=== PATIENT | female | born 1980 | race Caucasian/White ===

== ENCOUNTER → 2018-10-20 | Outpatient (CLI) | payer BC ==
--- NOTE | 2018-10-20 15:45 | Diagnostic Imaging Report ---
PROCEDURE: US Thyroid. TECHNIQUE: Multiple real-time grayscale images were obtained of the thyroid in various projections. INDICATION: Hyperthyroidism. COMPARISON: No prior studies are available for comparison. FINDINGS: Right lobe of the thyroid measures 4.7 x 2.1 x 1.6 cm and the left lobe measures 4.5 x 1.6 x 1.3 cm. The isthmus is 2 mm in thickness. Both lobes are somewhat heterogeneous in appearance but no discrete thyroid mass is detected. IMPRESSION: Heterogeneous thyroid. No discrete mass is identified. Dictated by: Dictated on workstation # [id number]
== END ==
LOC: RAD 12:47
PROVIDERS: ATTEND Family Medicine
DX: E05.90 Thyrotoxicosis, unspecified without thyrotoxic crisis or storm (principal)
CPT/HCPCS: 76536

== ENCOUNTER → 2019-02-16 | Outpatient (CLI) | payer BC | LOC: RAD 09:21 | PROVIDERS: ATTEND Family Medicine | DX: Z12.31 Encounter for screening mammogram for malignant neoplasm of breast (principal) | CPT/HCPCS: 77067 ==

== ENCOUNTER → 2019-03-24 | Outpatient (CLI) | payer BC ==
--- NOTE | 2019-03-25 12:29 | Diagnostic Imaging Report ---
EXAMINATION: Nuclear Medicine I-123 thyroid scan. INDICATION: Hyperthyroidism. TECHNIQUE: This study was performed following administration of 210 uCi of I-123. AP and both oblique views of the thyroid gland were obtained. COMPARISON: There are no prior Nuclear Medicine studies available for comparison. The thyroid ultrasound exam performed on 10/20/2018 noted that the thyroid gland was not enlarged. There was no focal mass involving either lobe but the gland did have a heterogeneous texture. FINDINGS: On this study, the 24 hour uptake is 52.1% (normal 10-30%). The thyroid gland does seem prominent. There is no focal area of increased or decreased activity to suggest a definite discrete lesion. There is slightly increased activity within the midportion of the right lobe but this is not convincing for a mass. IMPRESSION: 1. The 24-hour thyroid uptake value is elevated. The possibility of Graves' disease should certainly be considered. Correlation with the patient's thyroid laboratory values would be recommended. 2. The thyroid gland is prominent but there is no discrete area of increased or decreased activity to suggest a nodule. Dictated by: Dictated on workstation # [id number]
== END ==
LOC: CARD 10:23
PROVIDERS: ATTEND Internal Medicine Endocrinology, Diabetes & Metabolism
DX: E05.90 Thyrotoxicosis, unspecified without thyrotoxic crisis or storm (principal)
CPT/HCPCS: 78014

== ENCOUNTER → 2020-02-22 | Outpatient (CLI) | payer BC ==
--- NOTE | 2020-02-22 11:10 | Diagnostic Imaging Report ---
INDICATION: Routine screening. COMPARISON: 02/16/2019 and 01/04/2014. TECHNIQUE: 2D and 3D bilateral screening mammography was performed with CAD. FINDINGS: Both breasts are heterogeneously dense, limiting the sensitivity of mammography. No mass or malignant appearing microcalcifications are seen. The axillae are unremarkable. IMPRESSION: No mammographic features suspicious for malignancy are identified. ACR BI-RADS Category 1: Negative. Result letter will be mailed to the patient. Note: At least 10% of breast cancer is not imaged by mammography. Dictated by: Dictated on workstation # [id number]
== END ==
LOC: RAD 09:00
PROVIDERS: ATTEND Family Medicine
DX: Z12.31 Encounter for screening mammogram for malignant neoplasm of breast (principal)
CPT/HCPCS: 77063; 77067

== ENCOUNTER 2021-01-16 13:01 | Emergency (ER) | payer BC ==
[~2021-01-16] VITALS: Ht 160 cm; Wt 95.0 kg
[2021-01-16] MEDS ORDERED: fentaNYL INJ 100 MCG/2 ML AMP IVP ONE (14:00)
[2021-01-16] MEDS ORDERED: ETOMIDATE IV SOLN 20 MG/10 ML VIAL IV ONE (14:00)
[2021-01-16] MEDS ORDERED: ONDANSETRON 4 MG/2 ML (SDV) Z0FRAN IVP ONE (14:00)
--- NOTE | 2021-01-16 14:15 | Diagnostic Imaging Report ---
INDICATION: Fall with right wrist pain. AP, oblique, and lateral views of the right wrist are obtained at 1:44 p.m. FINDINGS: There is a comminuted distal radial intra-articular fracture with dorsal displacement and angulation of the distal fragments. Remaining bony structures are intact. IMPRESSION: Comminuted distal radial intra-articular fracture with dorsal angulation and dorsal displacement of the distal fragments. Dictated by: Dictated on workstation # [id number]
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
--- NOTE | 2021-01-16 14:48 | Diagnostic Imaging Report ---
INDICATION: Status post wrist fracture reduction. COMPARISON: Earlier same day. FINDINGS: Multiple radiographic views of the right wrist were obtained. Evaluation is partially obscured by overlying radiopaque cast material. Acute transverse oriented fracture of the distal radius is again identified. There has been interval improved alignment status post reduction. There is, however, some residual posterior subluxation and angulation of the distal fracture fragment. Radiocarpal joint space is maintained. No unexpected radiopaque foreign bodies are seen. IMPRESSION: 1. Overall improved alignment of previously described distal radial fracture. Dictated by: Dictated on workstation # [id number]
[2021-01-16] MEDS ORDERED: ACHD5005 PO (14:55)
[2021-01-16] MEDS ORDERED: IBUPROFEN 800 MG (MOTRIN) TAB PO ONE (15:00)
--- OUTSIDE RECORDS SUMMARY | 2021-01-16 15:41 | XMS REPORT | CCD ---
Author Author Leticia Luna D.O. Organization [facility] Address [address] [place] [address] Phone Care Team Providers Care Substation Operator Chief Name Role Phone PP Unavailable CCM Unavailable Summary Purpose Interface Exchange Insurance Providers Payer name Policy type / Coverage type Covered constitution party ID Effective Begin Date Effective End Date Blue Cross Blue Shield Blue Cross/Blue Shield [id number] 2019 Unknown Family history Mother Diagnosis Age At Onset Hypertension Unknown Father Diagnosis Age At Onset Hypertension Unknown Social History Social History Element Codes Description Effective Dates Marital status Unknown Single 09/30/2018 Employment Unknown Currently employed [employer] 09/30/[address]: 85651665 Current some days sm oker few when out with friends 09/30/[address]: 187698 Currently drinks alc ohol social 09/30/2018 Has the patient ever used illegal drugs? Unknown Has nev er used illegal drugs 09/30/2018 Allergies, Adverse Reactions, Alerts Substance Reaction Codes Entered Date Inactivated Date Status * NO KNOWN FOOD ALLERGIES Unknown 09/30/2018 No Inactiv e Date Active * NO KNOWN DRUG ALLERGIES Unknown 09/30/2018 No Inactiv e Date Active * NO KNOWN ENVIRONMENTAL ALLERGIES Unknown 09/30/2018 N o Inactive Date Active Problems Condition Codes Effective Dates Condition Status Hypertension Unknown 01/02/2021 Active Essential hypertension ICD-10: I10 ICD-9: 401.9 01/02/2021 Active Generalized anxiety disorder ICD-10: F41.1 ICD-9: 300.02 09/30/2018 Active Hypercholesterolemia ICD-10: E78.00 ICD-9: 272.0 01/02/2021 Active Tachycardia, unspecified ICD-10: R00.0 ICD-9: 785.0 09/30/2018 Active Thyrotoxicosis, unspecified without thyrotoxic crisis or storm ICD-10: E05.90 ICD-9: 242.90 09/30/2018 Active Encounter for screening mammogram for malignant neopla sm of breast ICD-10: Z12.31 ICD-9: V76.12 01/26/2019 Active Insomnia ICD-10: G47.00 ICD-9: 780.52 12/28/2019 Active Elevated blood-pressure reading, without diagnosis of hypertension ICD-10: R03.0 ICD-9: 796.2 09/30/2018 Active Encounter for general adult medical examination withou t abnormal findings ICD- 10: Z00.00 ICD-9: V70.9 09/30/2018 Active Palpitations ICD-10: R00.2 ICD-9: 785.1 09/30/2018 Active Medications Medication Codes Instructions Start Date Stop Date Status Fill Instructions fluoxetine 10 mg capsule RxNorm: 951907 Take 1 Capsule( s) Oral QD take with 40mg dose 01/02/2021 04/01/2021 Active flax seed oil RxNorm: Take 1 Capsule(s) Oral QD 01/02/2021 Inactive melatonin 5 mg capsule RxNorm: 388466 Take 1 Capsule(s) Oral every night at bedtime 01/02/2021 No Stop Date Active fluoxetine 40 mg capsule RxNorm: 215883 Take 1 Capsule(s) Oral QD 0 12/15/2020 03/14/2021 Active fluoxetine 40 mg capsule RxNorm: 997215 TAKE 1 CAPSULE BY MOUTH ONCE DAILY REPLACES ESCITALOPRAM 09/13/2020 09/13/2020 Inactive metoprolol succinate ER 50 mg tablet,extended release 24 hr RxNorm: 795846 1 Tablet(s) Oral QD 08/10/2020 02/05/2021 Active metoprolol succinate ER 50 mg tablet,extended release 24 hr RxNorm: 732829 1 Tablet(s) Oral QD 08/10/2020 08/09/2020 Inactive fluoxetine 40 mg capsule RxNorm: 409086 TAKE 1 CAPSULE BY MOUTH ONCE DAILY REPLACES ESCITALOPRAM 06/22/2020 09/12/2020 Inactive fluoxetine 40 mg capsule RxNorm: 954553 1 Capsule(s) Or al QD replaces escitalopram 03/02/2020 05/31/2020 Inactive fluoxetine 40 mg capsule RxNorm: 914898 1 Capsule(s) Or al QD replaces escitalopram 10/26/2019 01/23/2020 Inactive fluoxetine 40 mg capsule RxNorm: 006738 1 Capsule(s) Or al QD replaces escitalopram 10/26/2019 03/02/2020 Inactive metoprolol succinate ER 25 mg tablet,extended release 24 hr RxNorm: 818991 1 Tablet(s) Oral QD 09/28/2019 08/09/2020 Inactive fluoxetine 40 mg capsule RxNorm: 320168 1 Capsule(s) Or al QD replaces escitalopram 09/28/2019 10/25/2019 Inactive methimazole 5 mg tablet RxNorm: 865770 / Tablet(s) Oral QD 201906/26/2020 Inactive methimazole 10 mg tablet RxNorm: 883454 1 Tablet(s) Oral QD 020 09/27/2019 Inactive escitalopram 20 mg tablet RxNorm: 741414 1 Tablet(s) Oral QD re places 10mg dose 06/22/2019 09/27/2019 Inactive Sprintec (28) 0.25 mg-35 mcg tablet RxNorm: 684489 1 Tablet(s) Oral QD 06/22/2019 12/27/2019 Inactive metoprolol succinate ER 50 mg tablet,extended release 24 hr RxNorm: 403055 TAKE 1 TABLET BY MOUTH ONCE DAILY 05/07/2019 09/27/2019 Inactive metoprolol succinate ER 50 mg tablet,extended release 24 hr RxNorm: 394388 1 Tablet(s) Oral QD 02/23/2019 02/22/2019 Inactive metoprolol succinate ER 50 mg tablet,extended release 24 hr RxNorm: 274976 1 Tablet(s) Oral QD 02/23/2019 05/06/2019 Inactive escitalopram 10 mg tablet RxNorm: 508570 1 Tablet(s) PO QD 01/27/2006/21/2019 Inactive propranolol 40 mg tablet RxNorm: 883310 1 Tablet(s) PO QHS repl aces 20mg dose 01/26/2019 02/22/2019 Inactive propranolol 20 mg tablet RxNorm: 776509 1 Tablet(s) PO QHS for BP/pulse 10/29/2018 01/25/2019 Inactive escitalopram 5 mg tablet RxNorm: 266390 1 Tablet(s) PO QD 10/29/2018 06/21/2019 Inactive propranolol 20 mg tablet RxNorm: 402870 1 Tablet(s) PO QHS for BP/pulse 10/28/2018 10/28/2018 Inactive escitalopram 5 mg tablet RxNorm: 002188 1 Tablet(s) PO QD 10/01/2018 10/28/2018 Inactive escitalopram 5 mg tablet RxNorm: 690307 1 Tablet(s) PO QD 10/01/2018 09/30/2018 Inactive propranolol 20 mg tablet RxNorm: 410973 1 Tablet(s) PO QHS for BP/pulse 09/30/2018 10/27/2018 Inactive Multivitamin And Mineral tablet RxNorm: 1 Tablet(s) PO QD 09/30/2018 Active Vitamin B12 1000mcg Tablet RxNorm: 1 Tablet(s) PO QD 09/30/2018 Active docusate sodium 100 mg tablet RxNorm: 1059298 1-2 Tablet(s) PO QD Active Fish Oil 1,000 mg capsule RxNorm: 1 Capsule(s) PO QD 09/30/2018 Active Medication Administered No Medication Administered data Immunizations Vaccine Codes Date Status Covid-19 CVX: 08/12/2020 Covid-19 CVX: 207 07/15/2020 Influenza CVX: 141 01/22/2019 Tetanus, Diptheria, Pertussis CVX: 115 01/22/2019 Results Observation Observation Code Item Item Code Result Date S ervice Location THYROID STIMULATING HORMONE 65980 TSH <0.008 uIU/m L 01/05/2019 Unknown FREE T4 75053 T4 Free 1.04 ng/dL 01/05/2019 Unknown THYROID ANTIBODY GROUP 36459|45930 Thyro Perx Ab 361.28 Unit s 10/02/2018 Unknown THYROID ANTIBODY GROUP 44967|46899 Thyro Autoab 0.22 Units 0 10/02/2018 Unknown THYRO PERX 6579966 Thyro Perx Ab TNP:Unknown Cancel Reason 10/01/2018 Unknown LIPID GROUP 80650 Cholesterol 217 mg/dL 09/30/2018 Unkno wn LIPID GROUP 67059 Triglyceride 54 mg/dL 09/30/2018 Unkn own LIPID GROUP 98626 HDL CHOLESTEROL 61 mg/dL 09/30/2018 U nknown LIPID GROUP 88028 Chol/HDL Ratio 3.56 ratio 09/30/2018 U nknown LIPID GROUP 56194 NON-HDL Chol 156 mg/dL 09/30/2018 Unkn own LIPID GROUP 52521 LDL Cholesterol 145 mg/dL 09/30/2018 U nknown THYROID STIMULATING HORMONE 28221 TSH <0.008 uIU/m L 09/30/2018 Unknown COMPREHENSIVE METABOLIC 83448 AST 14 U/L 2018 Unknown COMPREHENSIVE METABOLIC 36116 ALT 13 U/L 2018 Unknown COMPREHENSIVE METABOLIC 95354 BUN 11 mg/dL 2018 Unknown COMPREHENSIVE METABOLIC 32192 ALBUMIN 4.5 g/dL 2018 Unknown COMPREHENSIVE METABOLIC 58182 CHLORIDE 107 mmol/L 09/30 Unknown COMPREHENSIVE METABOLIC 17594 Bili Total 0.4 mg/dL 09/30 Unknown COMPREHENSIVE METABOLIC 37818 ALK PHOS 59 U/L 2018 Unknown COMPREHENSIVE METABOLIC 37982 SODIUM 138 mmol/L 09/30 Unknown COMPREHENSIVE METABOLIC 52344 CREATININE 0.65 mg/dL 09/17 Unknown COMPREHENSIVE METABOLIC 08947 CALCIUM 9.5 mg/dL 2018 Unknown COMPREHENSIVE METABOLIC 12337 POTASSIUM 4.2 mmol/L 09/30 Unknown COMPREHENSIVE METABOLIC 23891 Total Protein 7.5 g/dL Unknown COMPREHENSIVE METABOLIC 18638 Glucose 104 mg/dL 2018 Unknown COMPREHENSIVE METABOLIC 26955 Bicarbonate 20 mmol/L 09/17 Unknown COMPREHENSIVE METABOLIC 74779 AGAP 11 mmol/L 2018 Unknown FREE T4 46966 T4 Free 1.25 ng/dL 09/30/2018 Unknown COMPLETE BLOOD COUNT 4720535 WBC 6.5 10e9/L 10/01/19 19 Unknown COMPLETE BLOOD COUNT 8675911 RBC 4.88 10e12/L 2018 Unknown COMPLETE BLOOD COUNT 0741338 HEMOGLOBIN 14.6 g/dL 10/01/19 19 Unknown COMPLETE BLOOD COUNT 9471373 HEMATOCRIT 43.8 % 10/01/19 19 Unknown COMPLETE BLOOD COUNT 8145968 MCV 89.8 fL 9 Unknown COMPLETE BLOOD COUNT 8270543 MCH 29.9 pg 9 Unknown COMPLETE BLOOD COUNT 4467741 MCHC 33.3 g/dL 9 Unknown COMPLETE BLOOD COUNT 6484109 PLATELET COUNT 275 10e9/L Unknown COMPLETE BLOOD COUNT 5685173 Mean Plt Volume 11.7 fL Unknown COMPLETE BLOOD COUNT 9861252 Neut Auto 76.1 % 9 Unknown COMPLETE BLOOD COUNT 8784387 Lymph Auto 17.9 % 10/01/19 19 Unknown COMPLETE BLOOD COUNT 3230677 [place] Auto 5.2 % 9 Unknown COMPLETE BLOOD COUNT 5397688 RDW 12.3 % 9 Unknown COMPLETE BLOOD COUNT 4546786 Eos Auto 0.6 % 9 Unknown COMPLETE BLOOD COUNT 6542845 Baso Auto 0.2 % 9 Unknown COMPLETE BLOOD COUNT 1669935 Neutrophil Abs 4.95 10e9/L Unknown COMPLETE BLOOD COUNT 3641235 Lymphocyte Abs 1.16 10e9/L Unknown COMPLETE BLOOD COUNT 7945349 Monocyte Abs 0.34 10e9/L 09/17 Unknown COMPLETE BLOOD COUNT 0346762 Eosinophil Abs 0.04 10e9/L Unknown COMPLETE BLOOD COUNT 1978482 RDW-SD 39.9 fL 9 Unknown COMPLETE BLOOD COUNT 5566715 Basophil Abs 0.01 10e9/L 09/17 Unknown GFR CALC 9869474 GFR Non Afr Amr >60 mL/min 09/30/2018 Un known GFR CALC [id number] GFR Afr Amr >60 mL/min 09/30/2018 Unknow n ASSAY TRIIODOTHYRONINE (T3) 81187 T3 Total 1.42 ng/mL 0 09/30/2018 Unknown Procedures Procedure Codes Date ROUTINE VENIPUNCTURE CPT-4: 05259 02/23/2019 ASSAY OF FREE THYROXINE CPT-4: 23340 02/23/2019 ASSAY THYROID STIM HORMONE CPT-4: 72617 02/23/2019 ROUTINE VENIPUNCTURE CPT-4: 51421 01/05/2019 ASSAY THYROID STIM HORMONE CPT-4: 67585 01/05/2019 ASSAY OF FREE THYROXINE CPT-4: 80425 01/05/2019 ROUTINE VENIPUNCTURE CPT-4: 86225 09/30/2018 ASSAY OF FREE THYROXINE CPT-4: 53105 09/30/2018 ASSAY THYROID STIM HORMONE CPT-4: 04325 09/30/2018 COMPREHEN METABOLIC PANEL CPT-4: 62747 09/30/2018 COMPLETE CBC W/AUTO DIFF WBC CPT-4: 33513 09/30/2018 ASSAY TRIIODOTHYRONINE (T3) CPT-4: 14778 09/30/2018 LIPID PANEL CPT-4: 79909 09/30/2018 THYROID ANTIBODY GROUP CPT-4: 63436|07274 09/30/2018 THYRO PERX CPT-4: 6292967 09/30/2018 Vital Signs Date Vital 01/02/2021 Blood Pressure 1: 120/72 Code: 8480-6 Heart Rate 1: 76 bpm Respiratory Rate: 18 bpm SpO2: 99% Temperature: 36.6 (C) / 97.9 (F) We ight: 208 lbs Code: 75828-2 06/27/2020 Blood Pressure 1: 116/78 Code: 8480-6 Heart Rate 1: 92 bpm Respiratory Rate: 20 bpm SpO2: 98% Temperature: 37.2 (C) / 99.0 (F) We ight: 207 lbs Code: 67317-9 12/28/2019 Blood Pressure 1: 114/72 Code: 8480-6 Heart Rate 1: 80 bpm Respiratory Rate: 20 bpm SpO2: 97% Temperature: 36.2 (C) / 97.1 (F) We ight: 207 lbs Code: 70954-9 09/28/2019 Blood Pressure 1: 124/80 Code: 8480-6 BMI: 35.8 Code: 19901-0 Heart Rate 1: 88 bpm Height: 5'4" Code: 8302-2 Respiratory Rate: 20 bpm SpO2: 98% Temperature: 37.2 (C) / 99.0 (F) Weight: 207 lbs Code: 94806-6 06/22/2019 Blood Pressure 1: 122/78 Code: 8480-6 Heart Rate 1: 72 bpm Respiratory Rate: 20 bpm SpO2: 98% Temperature: 37.3 (C) / 99.2 (F) We ight: 199 lbs Code: 70068-9 03/23/2019 Blood Pressure 1: 130/84 Code: 8480-6 He art Rate 1: 76 bpm 02/23/2019 Blood Pressure 1: 126/92 Code: 8480-6 He art Rate 1: 92 bpm 01/26/2019 Blood Pressure 1: 138/90 Code: 8480-6 Heart Rate 1: 86 bpm SpO2: 99% Temperature: 36.6 (C) / 97.9 (F) Weight: 189 lbs Code: 59860-6 10/27/2018 Blood Pressure 1: 128/70 Code: 8480-6 Heart Rate 1: 88 bpm Respiratory Rate: 20 bpm SpO2: 98% Temperature: 37.3 (C) / 99.2 (F) We ight: 172 lbs Code: 16781-5 09/30/2018 Blood Pressure 1: 136/86 Code: 8480-6 BMI: 29.6 Code: 51619-9 Heart Rate 1: 126 bpm Height: 5'4" Code: 8302-2 Respiratory Rate: 20 bpm SpO2: 98% Temperature: 37.9 (C) / 100.2 (F) Weight: 171 lbs Code: 56117-5 Functional Status No Functional Status data Reason For Visit Reason For Visit Effective Dates Notes follow up 01/02/2021 follow up 06/27/2020 follow up 12/28/2019 follow up 09/28/2019 follow up 06/22/2019 blood pressure check 03/23/2019 blood pressure check 02/23/2019 anxiety 01/26/2019 lab draw 01/05/2019 follow up 10/27/2018 ~generic 09/30/2018 New Patient---kvngl nimo visit Encounters Encounter Performer Location Codes Date ([id number]) OFFICE/OUTPATIENT VISIT EST Diagnosis: Generalized anxiety disorder[ICD10: F41.1] Diagnosis: Essential hypertension[ICD10: I10] Diagnosis: Hypercholesterolemia[ICD10: E78.00] Agustin MORENO [employer] CPT-4: 00683 01/02/2021 ([id number]) OFFICE/OUTPATIENT VISIT EST Diagnosis: Generalized anxiety disorder[ICD10: F41.1] Diagnosis: Tachycardia, unspecified[ICD10: R00.0] Diagnosis: Thyrotoxicosis, unspecified without thyrotoxic crisis or storm[ICD10: E05.90] Agustin Luna AGUSTIN [facility]rette [facility] CPT-4: 17633 06/27/2020 ([id number]) OFFICE/OUTPATIENT VISIT EST Diagnosis: Generalized anxiety disorder[ICD10: F41.1] Diagnosis: Insomnia[ICD10: G47.00] Agustin VELEZ MarquitaJoe PapriikaJORDY SALAS [facility] CPT-4: 50292 12/28/2019 ([id number]) OFFICE/OUTPATIENT VISIT EST Diagnosis: Generalized anxiety disorder[ICD10: F41.1] Diagnosis: Thyrotoxicosis, unspecified without thyrotoxic crisis or storm[ICD10: E05.90] [facility] CPT-4: 03323 09/28/2019 ([id number]) OFFICE/OUTPATIENT VISIT EST Diagnosis: Generalized anxiety disorder[ICD10: F41.1] Diagnosis: Thyrotoxicosis, unspecified without thyrotoxic crisis or storm[ICD10: E05.90] Diagnosis: Elevated blood-pressure reading, without diagnosis of hypertension[ICD10: R03.0] [facility] CPT- 4: 13889 06/22/2019 ([id number]) NURSE/OUTPATIENT VISIT EST Diagnosis: Thyrotoxicosis, unspecified without thyrotoxic crisis or storm[ICD10: E05.90] Diagnosis: Elevated blood-pressure reading, without diagnosis of hypertension[ICD10: R03.0] [facility] CPT- 4: 48958 02/23/2019 ([id number]) OFFICE/OUTPATIENT VISIT EST Diagnosis: Generalized anxiety disorder[ICD10: F41.1] Diagnosis: Elevated blood-pressure reading, without diagnosis of hypertension[ICD10: R03.0] Diagnosis: Thyrotoxicosis, unspecified without thyrotoxic crisis or storm[ICD10: E05.90] Agustin LUNA [employer] [facility] CPT-4: 98679 01/26/2019 ([id number]) NURSE/OUTPATIENT VISIT EST Diagnosis: Thyrotoxicosis, unspecified without thyrotoxic crisis or storm[ICD10: E05.90] [facility] CPT-4: 90014 01/05/2019 ([id number]) OFFICE/OUTPATIENT VISIT EST Diagnosis: Generalized anxiety disorder[ICD10: F41.1] Diagnosis: Tachycardia, unspecified[ICD10: R00.0] Diagnosis: Thyrotoxicosis, unspecified without thyrotoxic crisis or storm[ICD10: E05.90] [facility] CPT-4: 54228 10/27/2018 OFFICE/OUTPATIENT VISIT NEW Diagnosis: Tachycardia, unspecified[ICD10: R00.0] Diagnosis: Palpitations[ICD10: R00.2] Diagnosis: Generalized anxiety disorder[ICD10: F41.1] Diagnosis: Elevated blood-pressure reading, without diagnosis of hypertension[ICD10: R03.0] Diagnosis: Encounter for general adult medical examination without abnormal findings[ICD10: Z00.00] Diagnosis: Thyrotoxicosis, unspecified without thyrotoxic crisis or storm[ICD10: E05.90] Agustin LUNA [facility] CPT-4: 10018 09/30/2018 Plan of Care Planned Activity Notes Codes Status Date Visit Diagnosis Plan: Essential hypertension Discussio n: stable ICD-9 : 401.9 ICD-10 : I10 01/02/2021 Visit Diagnosis Plan: Generalized anxiety disorder Dis cussion: Increase fluoxetine to 50mg daily Stress Reducers--discussed yoga Call in 1month on how doing ICD-9 : 300.02 ICD-10 : F41.1 01/02/2021 Visit Diagnosis Plan: Hypercholesterolemia Discussion: Cholestoff pro and lifestyle change and repeat lipids in 3mos with thyroid lab ICD-9 : 272.0 ICD-10 : E78.00 01/02/2021 Patient Education: [employer] Card Patient Savings Mess age Completed 01/02/2021 Visit Diagnosis Plan: Tachycardia, unspecified Discuss ion: Discussed increasing metoprolol to 50mg daily ICD-9 : 785.0 ICD-10 : R00.0 06/27/2020 Visit Diagnosis Plan: Thyrotoxicosis, un specified without thyrotoxic crisis or storm Discussion: Has fwup lab in next 1-2 wilfredo coughlin ICD-9 : 242.90 ICD-10 : E05.90 06/27/2020 Visit Diagnosis Plan: Generalized anxiety disorder Dis cussion: Stable on fluoxetine ICD-9 : 300.02 ICD-10 : F41.1 06/27/2020 [facility] [phone] [id number] [facility] 06/27/2020 Care Plan: MAMMOGRAM SCREENING LOINC : 2 6347-5 Pending 01/26/2020 Visit Diagnosis Plan: Insomnia Discussion: Trial of ma gnesium 200mg to 400mg po q PM first and then can add melatonin 5-10mg p q PM if needed ICD-9 : 780.52 ICD-10 : G47.00 12/28/2019 Visit Diagnosis Plan: Generalized anxiety disorder Dis cussion: Improved with fluoxetine Recheck 6mos ICD-9 : 300.02 ICD-10 : F41.1 12/28/2019 Appointment: Agustin Luna WPtel: [address] [place], [place] [phone] US FOLLOW UP 12/28/2019 Visit Diagnosis Plan: Generalized anxiety disorder Dis cussion: Change escitalopram to Fluoxetine 40mg daily Call in 4 weeks ICD-9 : 300.02 ICD-10 : F41.1 09/28/2019 Visit Diagnosis Plan: Thyrotoxicosis, un specified without thyrotoxic crisis or storm Discussion: Due for repeat bloodwork Oct with Endo so will check full fasting lab at that time Discussion: Due for repeat bloodwork October 18 ICD-9 : 242.90 ICD-10 : E05.90 09/28/2019 Appointment: Agustin Luna WPtel: [address] [place], [place] [phone] US FOLLOW UP 09/28/2019 Patient Education: fluoxetine- [employer] Coupon [id number] [email or web address]-dm Completed 09/28/2019 Appointment: Agustin Luna WPtel: [address] [place], [place] [phone] US RESCHEDULED 09/21/2019 Visit Diagnosis Plan: Generalized anxiety disorder Dis cussion: Increase escitalopram to 20mg daily Call in 1month on how doing Follow Up: 3 months ICD-9 : 300.02 ICD-10 : F41.1 06/22/2019 Visit Diagnosis Plan: Elevated blood-pre ssure reading, without diagnosis of hypertension Discussion: Stable on metoprolole ICD-9 : 796.2 ICD-10 : R03.0 06/22/2019 Visit Diagnosis Plan: Thyrotoxicosis, un specified without thyrotoxic crisis or storm Discussion: On methimazole and fowolling with Dr. Hernandez Follow Up: As needed ICD-9 : 242.90 ICD-10 : E05.90 06/22/2019 Appointment: Agustin Luna WPtel: [address] [place] [address] US FOLLOW UP 06/22/2019 Patient Education: escitalopram oxalate- [employer] Co upon [id number] [email or web address]/getResource/[email or web address] Completed 06/22/2019 Appointment: Agustin Luna WPtel: [address] [place] [address] US BP CHECK 03/23/2019 Appointment: Agustin Luna WPtel: [address] [place] [address] US LAB 02/23/2019 Visit Diagnosis Plan: Generalized anxiety disorder Dis cussion: Increase lexapro to 10mg daily Stress Reducers Follow Up: 3 months ICD-9 : 300.02 ICD-10 : F41.1 01/26/2019 Visit Diagnosis Plan: Thyrotoxicosis, un specified without thyrotoxic crisis or storm Discussion: Sees endocrinology next joaquín h--will come by for TSH, Free T4 and TT3 before that visit ICD-9 : 242.90 ICD-10 : E05.90 01/26/2019 Visit Diagnosis Plan: Elevated blood-pre ssure reading, without diagnosis of hypertension Discussion: Increase propranolol to 40mg po q HS ICD-9 : 796.2 ICD-10 : R03.0 01/26/2019 Appointment: Agustin Luna WPtel: [address] [place], [place] [phone] US FOLLOW UP 01/26/2019 Patient Education: propranolol- [employer] Coupon [phone] https://[email or web address]/resources/getResource/61/[email or web address] Completed 01/26/2019 Patient Education: escitalopram oxalate- [employer] Co upon [id number] [email or web address]/resources/getResource/61/[email or web address] Completed 01/26/2019 Appointment: Agustin Luna WPtel: [address] [place], [place] [phone] US LAB 01/05/2019 Visit Diagnosis Plan: Generalized anxiety disorder Dis cussion: Improved with low dose lexapro Follow Up: 3 months ICD-9 : 300.02 ICD-10 : F41.1 10/27/2018 Visit Diagnosis Plan: Tachycardia, unspecified Discuss ion: Improved with propranolol ICD-9 : 785.0 ICD-10 : R00.0 10/27/2018 Visit Diagnosis Plan: Thyrotoxicosis, un specified without thyrotoxic crisis or storm Discussion: Referral to Endo--suppressed TSH with elevated thyroid peroxidase and symptoms of hyperthryoidism ICD-9 : 242.90 ICD-10 : E05.90 10/27/2018 Appointment: Agustin Luna WPtel: [address] [place], [place] [phone] US FOLLOW UP 10/27/2018 Care Plan: Referral Order SNOMED-CT : 30 [id number] Pending 10/27/2018 Care Plan: US EXAM OF HEAD AND NECK thyroid US LOIN C : 33087-0 Pending 10/01/2018 Visit Diagnosis Plan: Tachycardia, unspecified Discuss ion: Low dose propranolol at bedtime for pulse/BP/anxiety ICD-9 : 785.0 ICD-10 : R00.0 09/30/2018 Visit Diagnosis Plan: Generalized anxiety disorder Dis cussion: Stress reducers Will likely add low dose SSRI pending lab results ICD-9 : 300.02 ICD-10 : F41.1 09/30/2018 Visit Diagnosis Plan: Palpitations Discussion: Check l ab to ascertain not another cause--CBC, CMP, TSH, Free T4 ICD-9 : 785.1 ICD-10 : R00.2 09/30/2018 Appointment: Agustin Luna WPtel: [address] [place], [place] [phone] US SIGN RECORDS RELEASE NEW PATIENT 09/30/2018 Patient Education: propranolol- [employer] Adria [phone] [email or web address]/getResource/[email or web address] Completed 09/30/2018 Referral: Fatoumata Hernandez WPtel: [address] [id number] Referral Appointment Requested Instructions No Instructions Medical Equipment No Medical Equipment data Health Concerns Section Health Concerns data not found Goals Section Goals data not found Interventions Section Interventions data not found Health Status Evaluations/Outcomes Section Health Status Evaluations/Outcomes data not found Advance Directives No Advance Directive data
--- OUTSIDE RECORDS SUMMARY | 2021-01-16 15:41 | XMS REPORT | CCD ---
Author Author Leticia Luna D.O. 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 Name Role Phone PP Unavailable CCM Unavailable Summary Purpose Interface Exchange Insurance Providers Payer name Policy type / Coverage type Covered libertarian ID Effective Begin Date Effective End Date Blue Cross Blue Shield Blue Cross/Blue Shield [id number] 2019 Unknown Family history Mother Diagnosis Age At Onset Hypertension Unknown Father Diagnosis Age At Onset Hypertension Unknown Social History Social History Element Codes Description Effective Dates Marital status Unknown Single 09/30/2018 Employment Unknown Currently employed [employer] 09/30/[address]: 07381123 Current some days sm oker few when out with friends 09/30/[address]: 792171 Currently drinks alc ohol social 09/30/2018 Has [...] Fill Instructions fluoxetine 10 mg capsule RxNorm: 260758 Take 1 Capsule( s) Oral QD take with 40mg dose 01/02/2021 04/01/2021 Active flax seed oil RxNorm: Take 1 Capsule(s) Oral QD 01/02/2021 Inactive melatonin 5 mg capsule RxNorm: 081612 Take 1 Capsule(s) Oral every night at bedtime 01/02/2021 No Stop Date Active fluoxetine 40 mg capsule RxNorm: 636552 Take 1 Capsule(s) Oral QD 0 12/15/2020 03/14/2021 Active fluoxetine 40 mg capsule RxNorm: 978449 TAKE 1 CAPSULE BY MOUTH ONCE DAILY REPLACES ESCITALOPRAM 09/13/2020 09/13/2020 Inactive metoprolol succinate ER 50 mg tablet,extended release 24 hr RxNorm: 092305 1 Tablet(s) Oral QD 08/10/2020 02/05/2021 Active metoprolol succinate ER 50 mg tablet,extended release 24 hr RxNorm: 720265 1 Tablet(s) Oral QD 08/10/2020 08/09/2020 Inactive fluoxetine 40 mg capsule RxNorm: 267268 TAKE 1 CAPSULE BY MOUTH ONCE DAILY REPLACES ESCITALOPRAM 06/22/2020 09/12/2020 Inactive fluoxetine 40 mg capsule RxNorm: 628048 1 Capsule(s) Or al QD replaces escitalopram 03/02/2020 05/31/2020 Inactive fluoxetine 40 mg capsule RxNorm: 676456 1 Capsule(s) Or al QD replaces escitalopram 10/26/2019 01/23/2020 Inactive fluoxetine 40 mg capsule RxNorm: 691914 1 Capsule(s) Or al QD replaces escitalopram 10/26/2019 03/02/2020 Inactive metoprolol succinate ER 25 mg tablet,extended release 24 hr RxNorm: 781968 1 Tablet(s) Oral QD 09/28/2019 08/09/2020 Inactive fluoxetine 40 mg capsule RxNorm: 287940 1 Capsule(s) Or al QD replaces escitalopram 09/28/2019 10/25/2019 Inactive methimazole 5 mg tablet RxNorm: 489529 / Tablet(s) Oral QD 201906/26/2020 Inactive methimazole 10 mg tablet RxNorm: 623069 1 Tablet(s) Oral QD 020 09/27/2019 Inactive escitalopram 20 mg tablet RxNorm: 386216 1 Tablet(s) Oral QD re places 10mg dose 06/22/2019 09/27/2019 Inactive Sprintec (28) 0.25 mg-35 mcg tablet RxNorm: 091998 1 Tablet(s) Oral QD 06/22/2019 12/27/2019 Inactive metoprolol succinate ER 50 mg tablet,extended release 24 hr RxNorm: 099004 TAKE 1 TABLET BY MOUTH ONCE DAILY 05/07/2019 09/27/2019 Inactive metoprolol succinate ER 50 mg tablet,extended release 24 hr RxNorm: 439188 1 Tablet(s) Oral QD 02/23/2019 02/22/2019 Inactive metoprolol succinate ER 50 mg tablet,extended release 24 hr RxNorm: 058511 1 Tablet(s) Oral QD 02/23/2019 05/06/2019 Inactive escitalopram 10 mg tablet RxNorm: 695506 1 Tablet(s) PO QD 01/27/2006/21/2019 Inactive propranolol 40 mg tablet RxNorm: 822786 1 Tablet(s) PO QHS repl aces 20mg dose 01/26/2019 02/22/2019 Inactive propranolol 20 mg tablet RxNorm: 697095 1 Tablet(s) PO QHS for BP/pulse 10/29/2018 01/25/2019 Inactive escitalopram 5 mg tablet RxNorm: 789611 1 Tablet(s) PO QD 10/29/2018 06/21/2019 Inactive propranolol 20 mg tablet RxNorm: 623022 1 Tablet(s) PO QHS for BP/pulse 10/28/2018 10/28/2018 Inactive escitalopram 5 mg tablet RxNorm: 830463 1 Tablet(s) PO QD 10/01/2018 10/28/2018 Inactive escitalopram 5 mg tablet RxNorm: 308721 1 Tablet(s) PO QD 10/01/2018 09/30/2018 Inactive propranolol 20 mg tablet RxNorm: 043516 1 Tablet(s) PO QHS for BP/pulse 09/30/2018 10/27/2018 Inactive Multivitamin And Mineral tablet RxNorm: 1 Tablet(s) PO QD 09/30/2018 Active Vitamin B12 1000mcg Tablet RxNorm: 1 Tablet(s) PO QD 09/30/2018 Active docusate sodium 100 mg tablet RxNorm: 0899609 1-2 Tablet(s) PO QD Active Fish Oil 1,000 mg capsule RxNorm: 1 Capsule(s) PO QD 09/30/2018 Active Medication Administered No Medication Administered data Immunizations Vaccine Codes Date Status Covid-19 CVX: 08/12/2020 Covid-19 CVX: 207 07/15/2020 Influenza CVX: 141 01/22/2019 Tetanus, Diptheria, Pertussis CVX: 115 01/22/2019 Results Observation Observation Code Item Item Code Result Date S ervice Location THYROID STIMULATING HORMONE 77403 TSH <0.008 uIU/m L 01/05/2019 Unknown FREE T4 71292 T4 Free 1.04 ng/dL 01/05/2019 Unknown [facility] ANTIBODY GROUP 66865|56584 Thyro Perx Ab 361.28 Unit s 10/02/2018 Unknown THYROID ANTIBODY GROUP 63313|78450 Thyro Autoab 0.22 Units 0 10/02/2018 Unknown THYRO PERX 1411838 Thyro Perx Ab TNP:Unknown Cancel Reason 10/01/2018 Unknown LIPID GROUP 78612 Cholesterol 217 mg/dL 09/30/2018 Unkno wn LIPID GROUP 18612 Triglyceride 54 mg/dL 09/30/2018 Unkn own [facility] GROUP 27741 HDL CHOLESTEROL 61 mg/dL 09/30/2018 U nknown [facility] GROUP 40162 Chol/HDL Ratio 3.56 ratio 09/30/2018 U nknown [facility] GROUP 92711 NON-HDL Chol 156 mg/dL 09/30/2018 Unkn own [facility] GROUP 62883 LDL Cholesterol 145 mg/dL 09/30/2018 U nknown THYROID STIMULATING HORMONE 48004 TSH <0.008 uIU/m L 09/30/2018 Unknown COMPREHENSIVE METABOLIC 78601 AST 14 U/L 2018 Unknown COMPREHENSIVE METABOLIC 96003 ALT 13 U/L 2018 Unknown COMPREHENSIVE METABOLIC 58189 BUN 11 mg/dL 2018 Unknown COMPREHENSIVE METABOLIC 82637 ALBUMIN 4.5 g/dL 2018 Unknown COMPREHENSIVE METABOLIC 12425 CHLORIDE 107 mmol/L 09/30 Unknown COMPREHENSIVE METABOLIC 89032 Bili Total 0.4 mg/dL 09/30 Unknown COMPREHENSIVE METABOLIC 28746 ALK PHOS 59 U/L 2018 Unknown COMPREHENSIVE METABOLIC 45614 SODIUM 138 mmol/L 09/30 Unknown COMPREHENSIVE METABOLIC 32229 CREATININE 0.65 mg/dL 09/17 Unknown COMPREHENSIVE METABOLIC 07431 CALCIUM 9.5 mg/dL 2018 Unknown COMPREHENSIVE METABOLIC 76030 POTASSIUM 4.2 mmol/L 09/30 Unknown COMPREHENSIVE METABOLIC 88822 Total Protein 7.5 g/dL Unknown COMPREHENSIVE METABOLIC 84488 Glucose 104 mg/dL 2018 Unknown COMPREHENSIVE METABOLIC 35586 Bicarbonate 20 mmol/L 09/17 Unknown COMPREHENSIVE METABOLIC 61342 AGAP 11 mmol/L 2018 Unknown FREE T4 81410 T4 Free 1.25 ng/dL 09/30/2018 Unknown COMPLETE BLOOD COUNT 8040725 WBC 6.5 10e9/L 10/01/19 19 Unknown COMPLETE BLOOD COUNT 3213020 RBC 4.88 10e12/L 2018 Unknown COMPLETE BLOOD COUNT 8394092 HEMOGLOBIN 14.6 g/dL 10/01/19 19 Unknown COMPLETE BLOOD COUNT 5644530 HEMATOCRIT 43.8 % 10/01/19 19 Unknown COMPLETE BLOOD COUNT 8031118 MCV 89.8 fL 9 Unknown COMPLETE BLOOD COUNT 4719067 MCH 29.9 pg 9 Unknown COMPLETE BLOOD COUNT 1303377 MCHC 33.3 g/dL 9 Unknown COMPLETE BLOOD COUNT 4581979 PLATELET COUNT 275 10e9/L Unknown COMPLETE BLOOD COUNT 1860709 Mean Plt Volume 11.7 fL Unknown COMPLETE BLOOD COUNT 5187434 Neut Auto 76.1 % 9 Unknown COMPLETE BLOOD COUNT 4822260 Lymph Auto 17.9 % 10/01/19 19 Unknown COMPLETE BLOOD COUNT 9322744 Orange Auto 5.2 % 9 Unknown COMPLETE BLOOD COUNT 2500499 RDW 12.3 % 9 Unknown COMPLETE BLOOD COUNT 9451550 Eos Auto 0.6 % 9 Unknown COMPLETE BLOOD COUNT 0623224 Baso Auto 0.2 % 9 Unknown COMPLETE BLOOD COUNT 2085040 Neutrophil Abs 4.95 10e9/L Unknown COMPLETE BLOOD COUNT 5243996 Lymphocyte Abs 1.16 10e9/L Unknown COMPLETE BLOOD COUNT 4621973 Monocyte Abs 0.34 10e9/L 09/17 Unknown COMPLETE BLOOD COUNT 8381378 Eosinophil Abs 0.04 10e9/L Unknown COMPLETE BLOOD COUNT 1459209 RDW-SD 39.9 fL 9 Unknown COMPLETE BLOOD COUNT 9939028 Basophil Abs 0.01 10e9/L 09/17 Unknown GFR CALC 8435710 GFR Non Afr Amr >60 mL/min 09/30/2018 Un known GFR CALC 1404234 GFR Afr Amr >60 mL/min 09/30/2018 Unknow n ASSAY TRIIODOTHYRONINE (T3) 52074 T3 Total 1.42 ng/mL 0 09/30/2018 Unknown Procedures Procedure Codes Date ROUTINE VENIPUNCTURE CPT-4: 89111 02/23/2019 ASSAY OF FREE THYROXINE CPT-4: 08896 02/23/2019 ASSAY THYROID STIM HORMONE CPT-4: 37302 02/23/2019 ROUTINE VENIPUNCTURE CPT-4: 85607 01/05/2019 ASSAY THYROID STIM HORMONE CPT-4: 10280 01/05/2019 ASSAY OF FREE THYROXINE CPT-4: 54792 01/05/2019 ROUTINE VENIPUNCTURE CPT-4: 63347 09/30/2018 ASSAY OF FREE THYROXINE CPT-4: 45631 09/30/2018 ASSAY THYROID STIM HORMONE CPT-4: 04604 09/30/2018 COMPREHEN METABOLIC PANEL CPT-4: 67624 09/30/2018 COMPLETE CBC W/AUTO DIFF WBC CPT-4: 93974 09/30/2018 ASSAY TRIIODOTHYRONINE (T3) CPT-4: 69469 09/30/2018 LIPID PANEL CPT-4: 54242 09/30/2018 THYROID ANTIBODY GROUP CPT-4: 07930|21923 09/30/2018 THYRO PERX CPT-4: 9286982 09/30/2018 Vital Signs Date Vital 01/02/2021 Blood Pressure 1: 120/72 Code: 8480-6 Heart Rate 1: 76 bpm Respiratory Rate: 18 bpm SpO2: 99% Temperature: 36.6 (C) / 97.9 (F) We ight: 208 lbs Code: 72156-4 06/27/2020 Blood Pressure 1: 116/78 Code: 8480-6 Heart Rate 1: 92 bpm Respiratory Rate: 20 bpm SpO2: 98% Temperature: 37.2 (C) / 99.0 (F) We ight: 207 lbs Code: 83059-2 12/28/2019 Blood Pressure 1: 114/72 Code: 8480-6 Heart Rate 1: 80 bpm Respiratory Rate: 20 bpm SpO2: 97% Temperature: 36.2 (C) / 97.1 (F) We ight: 207 lbs Code: 52827-6 09/28/2019 Blood Pressure 1: 124/80 Code: 8480-6 BMI: 35.8 Code: 86542-0 Heart Rate 1: 88 bpm Height: 5'4" Code: 8302-2 Respiratory Rate: 20 bpm SpO2: 98% Temperature: 37.2 (C) / 99.0 (F) Weight: 207 lbs Code: 21886-2 06/22/2019 Blood Pressure 1: 122/78 Code: 8480-6 Heart Rate 1: 72 bpm Respiratory Rate: 20 bpm SpO2: 98% Temperature: 37.3 (C) / 99.2 (F) We ight: 199 lbs Code: 75943-7 03/23/2019 Blood Pressure 1: 130/84 Code: 8480-6 He art Rate 1: 76 bpm 02/23/2019 Blood Pressure 1: 126/92 Code: 8480-6 He art Rate 1: 92 bpm 01/26/2019 Blood Pressure 1: 138/90 Code: 8480-6 Heart Rate 1: 86 bpm SpO2: 99% Temperature: 36.6 (C) / 97.9 (F) Weight: 189 lbs Code: 58898-0 10/27/2018 Blood Pressure 1: 128/70 Code: 8480-6 Heart Rate 1: 88 bpm Respiratory Rate: 20 bpm SpO2: 98% Temperature: 37.3 (C) / 99.2 (F) We ight: 172 lbs Code: 44877-2 09/30/2018 Blood Pressure 1: 136/86 Code: 8480-6 BMI: 29.6 Code: 67302-8 Heart Rate 1: 126 bpm Height: 5'4" Code: 8302-2 Respiratory Rate: 20 bpm SpO2: 98% Temperature: 37.9 (C) / 100.2 (F) Weight: 171 lbs Code: 02790-0 Functional Status No Functional Status data Reason For Visit Reason For Visit Effective Dates Notes follow up 01/02/2021 follow up 06/27/2020 follow up 12/28/2019 follow up 09/28/2019 follow up 06/22/2019 blood pressure check 03/23/2019 blood pressure check 02/23/2019 anxiety 01/26/2019 lab draw 01/05/2019 follow up 10/27/2018 ~generic 09/30/2018 New Patient---kvngl nimo visit Encounters Encounter Performer Location Codes Date ([id number]) OFFICE/OUTPATIENT VISIT EST Diagnosis: Generalized anxiety disorder[ICD10: F41.1] Diagnosis: Essential hypertension[ICD10: I10] Diagnosis: Hypercholesterolemia[ICD10: E78.00] Agustin MORENO MarquitaJoe [employer]SH[employer]. CPT-4: 94909 01/02/2021 ([id number]) OFFICE/OUTPATIENT VISIT EST Diagnosis: Generalized anxiety disorder[ICD10: F41.1] Diagnosis: Tachycardia, unspecified[ICD10: R00.0] Diagnosis: Thyrotoxicosis, unspecified without thyrotoxic crisis or storm[ICD10: E05.90] Agustin Luna AGUSTIN Everette LUNA [employer] CPT-4: 41390 06/27/2020 ([id number]) OFFICE/OUTPATIENT VISIT EST Diagnosis: Generalized anxiety disorder[ICD10: F41.1] Diagnosis: Insomnia[ICD10: G47.00] Agustin VELEZ MarquitaJoe [employer]ORDY SALAS [employer] CPT-4: 32477 12/28/2019 ([id number]) OFFICE/OUTPATIENT VISIT EST Diagnosis: Generalized anxiety disorder[ICD10: F41.1] Diagnosis: Thyrotoxicosis, unspecified without thyrotoxic crisis or storm[ICD10: E05.90] Agustin LUNA DO [facility] CPT-4: 61132 09/28/2019 ([id number]) OFFICE/OUTPATIENT VISIT EST Diagnosis: Generalized anxiety disorder[ICD10: F41.1] Diagnosis: Thyrotoxicosis, unspecified without thyrotoxic crisis or storm[ICD10: E05.90] Diagnosis: Elevated blood-pressure reading, without diagnosis of hypertension[ICD10: R03.0] Agustin LUNA DO [facility] CPT- 4: 15953 06/22/2019 ([id number]) NURSE/OUTPATIENT VISIT EST Diagnosis: Thyrotoxicosis, unspecified without thyrotoxic crisis or storm[ICD10: E05.90] Diagnosis: Elevated blood-pressure reading, without diagnosis of hypertension[ICD10: R03.0] Agustin LUNA DO [facility] CPT- 4: 89438 02/23/2019 ([id number]) OFFICE/OUTPATIENT VISIT EST Diagnosis: Generalized anxiety disorder[ICD10: F41.1] Diagnosis: Elevated blood-pressure reading, without diagnosis of hypertension[ICD10: R03.0] Diagnosis: Thyrotoxicosis, unspecified without thyrotoxic crisis or storm[ICD10: E05.90] Agustin LUNA [employer] [facility] CPT-4: 79657 01/26/2019 ([id number]) NURSE/OUTPATIENT VISIT EST Diagnosis: Thyrotoxicosis, unspecified without thyrotoxic crisis or storm[ICD10: E05.90] Agustin LUNA DO [facility] CPT-4: 69447 01/05/2019 ([id number]) OFFICE/OUTPATIENT VISIT EST Diagnosis: Generalized anxiety disorder[ICD10: F41.1] Diagnosis: Tachycardia, unspecified[ICD10: R00.0] Diagnosis: Thyrotoxicosis, unspecified without thyrotoxic crisis or storm[ICD10: E05.90] Agustin LUNA DO [facility] CPT-4: 19375 10/27/2018 OFFICE/OUTPATIENT VISIT NEW Diagnosis: Tachycardia, unspecified[ICD10: R00.0] Diagnosis: Palpitations[ICD10: R00.2] Diagnosis: Generalized anxiety disorder[ICD10: F41.1] Diagnosis: Elevated blood-pressure reading, without diagnosis of hypertension[ICD10: R03.0] Diagnosis: Encounter for general adult medical examination without abnormal findings[ICD10: Z00.00] Diagnosis: Thyrotoxicosis, unspecified without thyrotoxic crisis or storm[ICD10: E05.90] Agustin LUNA [facility] CPT-4: 12608 09/30/2018 Plan of Care Planned Activity Notes [...] 272.0 ICD-10 : E78.00 01/02/2021 Patient Education: [employer] Card Patient Savings Mess age Completed [...] F41.1 06/27/2020 [facility] [phone] [id number] [facility] 06/27/2020 Care Plan: [...] : F41.1 12/28/2019 Appointment: Agustin Luna WPtel: [address] [place], [place] [phone] [place] FOLLOW UP 12/28/2019 Visit Diagnosis Plan: [...] : E05.90 09/28/2019 Appointment: Agustin Luna WPtel: [address] [place], [place] [phone] [place] FOLLOW UP 09/28/2019 Patient Education: fluoxetine- [employer] Coupon [id number] https://www.[employer]/resources/getResource/61/[email or web address]-yb Completed 09/28/2019 Appointment: Agustin Luna WPtel: [address] [place], [place] [phone] [place] RESCHEDULED 09/21/2019 Visit Diagnosis Plan: Generalized [...] : E05.90 06/22/2019 Appointment: Agustin Luna WPtel: [address] [place] [address] US FOLLOW UP 06/22/2019 Patient Education: escitalopram oxalate- [employer] Co upon [id number] https://www.[employer]/resources/getResource/61/sdlc3191-875x-69d2-j8 Completed 06/22/2019 Appointment: Agustin Luna WPtel: [address] [place] [address] US BP CHECK 03/23/2019 Appointment: Agustin Luna WPtel: [address] [place] [address] US LAB 02/23/2019 Visit Diagnosis Plan: Generalized [...] : R03.0 01/26/2019 Appointment: Agustin Luna WPtel: [address] [place], [place] [phone] [place] FOLLOW UP 01/26/2019 Patient Education: propranolol- [employer] Coupon [phone] https://www.[employer]/resources/getResource/61/5968t716-j13f-0h32-51 Completed 01/26/2019 Patient Education: escitalopram oxalate- [employer] Co upon [id number] https://www.[employer]/resources/getResource/61/g62q9t35-p2hn-9ry8-p0 Completed 01/26/2019 Appointment: Agustin Luna WPtel: [address] [place], [place] [phone] US LAB 01/05/2019 Visit Diagnosis Plan: Generalized [...] : E05.90 10/27/2018 Appointment: Agustin Luna WPtel: [address] [place], [place] [phone] US FOLLOW UP 10/27/2018 Care Plan: Referral Order SNOMED-CT : 30 [id number] Pending 10/27/2018 Care Plan: US EXAM OF HEAD AND NECK thyroid US LOIN C : 30253-1 Pending 10/01/2018 Visit Diagnosis Plan: Tachycardia, unspecified [...] : R00.2 09/30/2018 Appointment: Agustin Luna WPtel: [address] [place], [place] [phone] US SIGN RECORDS RELEASE NEW PATIENT 09/30/2018 Patient Education: propranolol- [employer] Adria [phone] https://www.[employer].com/samplemd/resources/getResource/61/23535t75-[email or web address]-5d Completed 09/30/2018 Referral: Fatoumata Hernandez WPtel: [address] [address] [id number] Referral Appointment Requested Instructions No Instructions Medical Equipment No Medical Equipment data Health Concerns Section Health Concerns data not found Goals Section Goals data not found Interventions Section Interventions data not found Health Status Evaluations/Outcomes Section Health Status Evaluations/Outcomes data not found Advance Directives No Advance Directive data
[2021-01-16 15:59] VITALS: BP 115/78
== END 2021-01-16 15:15 | disposition home or self-care (01) ==
LOC: EDUNIT# 13:01 → ER 13:03
DX: S52.501A Unspecified fracture of the lower end of right radius, initial encounter for closed fracture (principal); F17.200 Nicotine dependence, unspecified, uncomplicated; V00.831A Fall from motorized mobility scooter, initial encounter
CPT/HCPCS: 25565; 29125; 73100; 73110; 93041; A4565

== ENCOUNTER → 2021-02-27 | Outpatient (CLI) | payer BC ==
[~2021-02-27] MED LIST: ACHD5005 PO
--- NOTE | 2021-02-27 11:34 | Diagnostic Imaging Report ---
INDICATION: Routine screening. Comparison is made with prior mammogram from 02/22/2020 and 02/16/2019. 2-D and 3-D bilateral screening mammography was performed with CAD. Both breasts remain heterogeneously dense, limiting the sensitivity of mammography. The parenchymal pattern is stable. No mass or malignant-appearing microcalcifications are seen. Axillae are unremarkable. IMPRESSION: BI-RADS Category 1 No mammographic features suspicious for malignancy are identified. ACR BI-RADS Category 1: Negative. Result letter will be mailed to the patient. Note: At least 10% of breast cancer is not imaged by mammography. Dictated by: Dictated on workstation # [id number]
== END ==
LOC: RAD 07:30
PROVIDERS: ATTEND Family Medicine
DX: Z12.31 Encounter for screening mammogram for malignant neoplasm of breast (principal)
CPT/HCPCS: 77063; 77067

== ENCOUNTER → 2022-03-05 | Outpatient (CLI) | payer BC ==
--- NOTE | 2022-03-05 14:35 | Diagnostic Imaging Report ---
INDICATION: Routine screening. COMPARISON: 02/27/2021 and 02/22/2020. TECHNIQUE: 2D and 3D bilateral screening mammography was performed with CAD. FINDINGS: Both breasts are heterogeneously dense, limiting the sensitivity of mammography. The parenchymal pattern is stable. No mass or malignant-appearing microcalcifications are seen. The axillae are unremarkable. IMPRESSION: No mammographic features suspicious for malignancy are identified. ACR BI-RADS Category 1: Negative. Result letter will be mailed to the patient. Note: At least 10% of breast cancer is not imaged by mammography. Dictated by: Dictated on workstation # [id number]
== END ==
LOC: RAD 08:30
PROVIDERS: ATTEND Family Medicine
DX: Z12.31 Encounter for screening mammogram for malignant neoplasm of breast (principal)
CPT/HCPCS: 77063; 77067

== ENCOUNTER → 2023-03-06 | Outpatient (CLI) | payer BC ==
--- NOTE | 2023-03-06 15:22 | Diagnostic Imaging Report ---
INDICATION: Routine screening. Comparison is made prior mammogram from 03/05/2022 and 02/27/2021. 2-D and 3-D bilateral screening mammography was performed with CAD. Both breasts are heterogeneously dense, limiting sensitivity of mammography. The overall parenchymal pattern is stable. No mass or malignant-appearing microcalcifications are seen. Axillae are unremarkable. IMPRESSION: No mammographic features suspicious for malignancy are identified. ACR BI-RADS Category 1: Negative. Result letter will be mailed to the patient. Note: At least 10% of breast cancer is not imaged by mammography. BI-RADS Category 1 Dictated by: Dictated on workstation # [id number]
== END ==
LOC: RAD 11:09
PROVIDERS: ATTEND Family Medicine
DX: Z12.31 Encounter for screening mammogram for malignant neoplasm of breast (principal)
CPT/HCPCS: 77063; 77067